=== PATIENT | male | born 1965 | race Caucasian/White ===

== ENCOUNTER 2017-07-02 11:25 | Day surgery (SDC) | payer BC ==
[~2017-07-02 11:25] MED LIST: LIDOCAINE 2% MDV (20MG/ML) 20ML VIAL IV ONE; MIDAZOLAM HCL 2MG/2ML VIAL IV ONE; PROPOFOL 10 MG/ML VIAL IV ONE
--- NOTE | 2017-07-03 12:51 | Operative Note ---
DATE OF SURGERY: 07/02/2017 OPERATION: COLONOSCOPY. PREOPERATIVE DIAGNOSIS: Colon cancer screening, average risk. POSTOPERATIVE DIAGNOSIS: Normal exam. PREPARATION QUALITY: Good. ESTIMATED BLOOD LOSS: None. SPECIMENS: None. COMPLICATIONS: None apparent. PROCEDURE: After informed consent was obtained from the patient, the patient was placed in the left lateral decubitus position in the endoscopy suite, sedated and monitored by the department of anesthesia. Digital rectal exam was unremarkable. A well-lubricated [id number] colonoscope was inserted into the rectum and advanced to the cecum. The cecum and cecal bulb were noted by the ileocecal valve and appendiceal orifice. Preparation quality was good. The cecum, ascending colon, transverse colon, descending colon, sigmoid colon, and rectum were carefully inspected. No polyps, mass lesions, or inflammation was seen. Forward and J-turn views of the rectum and anorectum were unremarkable. The endoscope was straightened, the rectal ampulla deflated, and the endoscope was removed. RECOMMENDATIONS: I would suggest the patient undergo a repeat exam in 10 years or sooner should new symptoms warrant. As always, thank you for allowing me to participate in the healthcare of your patients. CC: SANDIE MCCORMICK MD, FACP MTDD
== END 2017-07-02 13:10 | disposition home or self-care (01) ==
LOC: HOP 11:25
PROVIDERS: ATTEND Internal Medicine Gastroenterology
DX: Z12.11 Encounter for screening for malignant neoplasm of colon (principal)
CPT/HCPCS: 00810; G0121